=== PATIENT | female | born 1985 | race Caucasian/White ===

== ENCOUNTER 2019-02-25 13:19 | Inpatient (IN) | payer MEDICAID ==
[~2019-02-25] VITALS: Ht 165.1 cm; Wt 94.6 kg
[2019-02-25 13:57] VITALS: Ht 165.1 cm; Wt 94.6 kg
[2019-02-25 13:58] VITALS: BP 145/96; PULSE 101; RESP 20
[2019-02-25] MEDS ORDERED: METHYLERGONOVINE 0.2 MG INJ IM PRN (14:00)
[2019-02-25] MEDS ORDERED: OXYTOCIN 30 UNITS/LR 500 ML IV SCH ×3 (14:00→15:30)
[2019-02-25] MEDS ORDERED: CARBOPROST 250 MCG INJ IM PRN (14:00)
[2019-02-25] MEDS ORDERED: OXYTOCIN 30 UNITS/LR 500 ML IV PRN (14:00)
[2019-02-25] MEDS ORDERED: BUTORPHANOL 2 MG INJ IV PRN ×2 (14:00)
[2019-02-25] MEDS ORDERED: MISOPROSTOL 200 MCG TAB PR PRN (14:00)
[2019-02-25] MEDS ORDERED: LIDOCAINE 1% (MPF) 30 ML INJ INJ PRN (14:00)
[2019-02-25] MEDS ORDERED: MINERAL OIL LIGHT 10 ML VIAL TOP ONE (15:30)
[2019-02-25] MEDS: ACETAMINOPHEN 325 MG TAB PO PRN ×2 (15:45→20:54)
[2019-02-25] MEDS: LACTATED RINGER'S 1,000 ML IV SCH (15:46)
[2019-02-25] MEDS ORDERED: LACTATED RINGER'S 1,000 ML IV PRN (22:15)
--- NOTE | 2019-02-25 23:00 | PREAC ---
Date/Time of Note Date/Time of Note DATE: 02/25/19 TIME: 22:59 Anesthesia Eval and Record Evaluation Time Pre-Procedure Interview DATE: 02/25/19 TIME: 22:59 Age 33 Sex female NPO: Other (n/a) Preoperative diagnosis intrauterine Planned procedure labor epidural Past Medical History Past Medical History: Includes Cardio: HTN Surgery & Anesthesia Issues No known issue Meds Anticoagulation: No Beta Vielka within 24 hr: No Reason Beta Vielka not given: Pt. not on B-Vielka Current Medications Lactated Ringer's 1,000 ml @ 125 mls/hr Q8H IV Last administered on 02/25/19at 15:46; Admin Dose 125 MLS/HR; Start 02/25/19 at 13:42 Butorphanol Tartrate (Stadol) 1 mg Q2H PRN IV .PAIN SCALE 1-5; Start 02/25/19 at 14:00 Butorphanol Tartrate (Stadol) 2 mg Q2H PRN IV .PAIN SCALE 6-10; Start 02/25/19 at 14:00 Lidocaine (Xylocaine 1% (Mpf)) 30 ml ONCE PRN INJ .EPISIOTOMY; Start 02/25/19 at 14:00 Oxytocin/Lactated Ringer's 500 ml @ 500 mls/hr ONCE POST IV ; Start 02/25/19 at 14:00 Oxytocin/Lactated Ringer's 500 ml @ 125 mls/hr POST IV ; Start 02/25/19 at 14:00 Oxytocin/Lactated Ringer's 500 ml @ 0 mls/hr ONCE PRN IV .VAGINAL BLEEDING; Start 02/25/19 at 14:00 Methylergonovine Maleate (Methergine) 0.2 mg ONCE PRN IM .VAGINAL BLEEDING; Start 02/25/19 at 14:00 Carboprost Tromethamine (Hemabate) 250 mcg ONCE PRN IM .VAGINAL BLEEDING; Start 02/25/19 at 14:00 Misoprostol (Cytotec) 1,000 mcg ONCE PRN [place] .VAGINAL BLEEDING; Start 02/25/19 at 14:00 Acetaminophen (Tylenol Tab) 650 mg Q4H PRN PO MILD PAIN(1-3)OR ELEVATED TEMP Last administered on 02/25/19at 20:54; Admin Dose 650 MG; Start 02/25/19 at 15:30 Oxytocin/Lactated Ringer's 500 ml @ 0 mls/hr FOR INDUCTION IV Last administered on 02/25/19at 15:49; Admin Dose 0 MLS/HR; Start 02/25/19 at 15:30 Lactated Ringer's 1,000 ml @ 2,000 mls/hr Q30M PRN IV .ANESTHESIA; Start 02/25/19 at 22:15 Meds reviewed: Yes Allergies Coded Allergies: codeine (Verified Allergy, Mild, 02/25/19) FEELS LIKE PINS AND NEEDLES ALL OVER MY BODY Allergies Reviewed: Yes Labs/Studies Labs Reviewed: Reviewed by anesthesiologist Result Diagram: 02/25/19 1500 02/25/19 1500 Laboratory Tests 02/25/19 15:00 Blood Bank Test 02/25/19 15:00 Antibody Screen NEGATIVE Blood Type B NEGATIVE Rh Immune Globulin Candidate test: N/A Pre-procedure Exam Last vitals Vital Signs Date Temp Pulse Resp B/P (MAP) Pulse Ox O2 O2 Flow FiO2 Time Delivery Rate 02/25/19 98.2 19:02 02/25/19 101 20 145/96 Room Air 13:58 (112) Airway: Adequate mouth opening, Adequate thyromental dist Mallampati: Mallampati II Teeth: Normal Lung: Normal Heart: Normal ASA Physical Status ASA physical status: 2 Emergency: None Planned Anesthetic Neuraxial: Epidural Planned Pain Management Epidural Pre-operative Attestations Prior to commencing anesthesia and surgery, the patient was re-evaluated, there was verification of: *The patient's identity *The results of appropriate recent lab work and preoperative vital signs *The above evaluation not changing prior to induction *Anesthetic plan, risk benefits, alternative and complications discussed with patient/family; questions answered; patient/family understands, accepts and wishes to proceed. THEO FU MD Feb 25, 2019 23:00
[2019-02-25] MEDS ORDERED: FENTAnyl 2MCG/ML-ROPIV 0.2% 100 ML ONE (23:09)
[2019-02-25] MEDS ORDERED: NALOXONE (0.4 MG/ML) INJ IV PRN (23:30)
[2019-02-25] MEDS ORDERED: ONDANSETRON 4 MG INJ IV PRN (23:30)
[2019-02-25] MEDS ORDERED: DIPHENHYDRAMINE 50 MG INJ IV PRN (23:30)
[2019-02-26] MEDS: LACTATED RINGER'S 1,000 ML IV SCH ×4 (00:13→22:19)
--- NOTE | 2019-02-26 01:12 | PAC ---
Date/Time of Note Date/Time of Note DATE: 02/26/19 TIME: 01:11 Post-Anesthesia Notes Post-Anesthesia Note Last documented vital signs Vital Signs Date Temp Pulse Resp B/P (MAP) Pulse Ox O2 O2 Flow FiO2 Time Delivery Rate 02/25/19 98.2 19:02 02/25/19 101 20 145/96 Room Air 13:58 (112) Activity: WNL Respiratory function: WNL Cardiovascular function: WNL Mental status: Baseline Pain reasonably controlled: Yes Hydration appropriate: Yes Nausea/Vomiting absent: Yes Comments BP: 138/81 HR: 90 RR: 16 T: 98.2 SaO2: 100% THEO FU MD Feb 26, 2019 01:12
[2019-02-26] MEDS: ACETAMINOPHEN 325 MG TAB PO PRN (02:24)
[2019-02-26] MEDS: FENTAnyl 2MCG/ML-ROPIV 0.2% 100 ML BAG EPI SCH ×4 (03:51→18:13)
[2019-02-26] MEDS ORDERED: OXYTOCIN 30 UNITS/LR 500 ML BAG IV ONE (11:20)
--- NOTE | 2019-02-26 23:19 | HP ---
Date/Time of Note Date/Time of Note DATE: 02/26/19 TIME: 23:18 OB - History Hx of Present Free Text/Dictation @39+6 wks GA fro Augmentation of labor : 1 Para: 0 Care: Good Care Ultrasounds: Normal mid trimester US Obstetrical Complications: None Past Family/Social History * Past Medical, Surgical, Family and Obstetric Histories reviewed from chart. OB Admission Exam Vital Signs Vital Signs Vital Signs Date Temp Pulse Resp B/P (MAP) Pulse Ox O2 O2 Flow FiO2 Time Delivery Rate 02/25/19 98.2 19:02 02/25/19 101 20 145/96 Room Air 13:58 (112) Physical Exam Cervical Dilatation: 1cm Effacement: 75% Station: -1 Membranes: Intact Heart Rate: 140's Accelerations: Accelerations Present Decelerations: No Decelerations Varibility: Moderate Contractions on Admission: 6-10 Minutes Apart Last 72 hours Lab Results CBC & BMP 02/25/19 15:00 Liver Function Test 02/25/19 15:00 Alanine Aminotransferase (ALT/SGPT) 16 Albumin 3.8 Alkaline Phosphatase 177 H Aspartate Amino Transf (AST/SGOT) 26 Direct Bilirubin 0.00 Total Protein 7.2 OB Assessment/Plan Reason for admission: observation Other Assessment: PMH Denies PSH Denies Induction Method: per Pitocin Protocol MINISTERIO COLLIER M.D. Feb 26, 2019 23:19
[2019-02-26] MEDS: AZITHROMYCIN 500MG/NS (PMX) 250 ML IV SCH (23:20)
[2019-02-26] MEDS ORDERED: LIDOCAINE 1.5%/EPI MPF (SDV) 30 ML VIAL ONE (23:20)
[2019-02-26] MEDS ORDERED: FENTAnyl 50 MCG/ML VIAL ONE (23:21)
[2019-02-26] MEDS ORDERED: NA BICARB 50 MEQ/50 ML VIAL ONE (23:21)
[2019-02-26] MEDS ORDERED: NALOXONE (0.4 MG/ML) INJ IV PRN (23:30)
[2019-02-26] MEDS ORDERED: ZOLPIDEM 5 MG TAB PO PRN (23:30)
[2019-02-26] MEDS ORDERED: CEFAZOLIN 2 GM/50 ML (PMX) 50 ML IVPB SCH (23:30)
[2019-02-26] MEDS ORDERED: HYDROmorphONE 0.5 MG/0.5 ML SYG IV PRN ×2 (23:30)
[2019-02-26] MEDS ORDERED: ONDANSETRON 4 MG INJ IV PRN (23:30)
[2019-02-26] MEDS ORDERED: DIPHENHYDRAMINE 50 MG INJ IV PRN (23:30)
[2019-02-26] MEDS ORDERED: ONDANSETRON 4 MG INJ ONE (23:41)
[2019-02-26] MEDS ORDERED: DEXAMETHASONE 4 MG/ML 1 ML INJ ONE (23:41)
[2019-02-26] MEDS ORDERED: morphine SULFATE/PF (10 MG/10 ML) INJ ONE (23:43)
[2019-02-27] MEDS: KETOROLAC 30 MG INJ IV PRN ×4 (00:43→22:21)
[2019-02-27] MEDS: AZITHROMYCIN 500MG/NS (PMX) 250 ML IV SCH (01:46)
[2019-02-27] MEDS ORDERED: OXYTOCIN 30 UNITS/LR 500 ML IV SCH (02:45)
--- NOTE | 2019-02-27 02:46 | OPR ---
DATE OF OPERATION: 02/26/2019 PREOPERATIVE DIAGNOSIS: Arrest of labor, failure to descend, more than 4 hours, the station of the h ead was -2 despite being complete. POSTOPERATIVE DIAGNOSIS: Arrest of labor, failure to descend, more than 4 hours, the station of the head was -2 despite being complete. PROCEDURE PERFORMED: Primary section. ATTENDING SURGEON: Dr. Collier. SECOND HAND PAPER MACHINE: Dr. Fuentes. TYPE OF ANESTHESIA: Epidural. ANESTHESIOLOGIST: Dr. Oliver. ESTIMATED BLOOD LOSS: 600 mL. COMPLICATIONS: None. TECHNIQUE: The patient was taken to the operating room where epidural anesthesia was found to be yady quate. The patient was placed in supine position. After prep and drape, a Pfannenstiel incision was made 2 cm above the symphysis pubis. It was extended to the underlying fascia. Fascia was nicked i n the midline. Fascial incision was extended bilaterally. Fascia was from underlying musc les. Muscles in the midline. Peritoneum was entered sharply. Peritoneal incision was ext ended. Bladder blade was placed inside the abdominal cavity. Lower uterine segment incision was mad e. Baby was delivered vertex, handed to the NICU team. Cord blood sent. Placenta was removed manua lly. Uterus was exteriorized. Intrauterine cavity was cleaned using 2 sponges. Lower uterine incis ion was closed in 2 layers using 0 looped PDS sutures. Gutters were cleaned. Uterus was inserted in side the abdominal cavity. Peritoneum and muscle were reapproximated using 2-0 chromic sutures. Fas rodríguez was closed in a running nonlocking fashion using 0 looped PDS sutures. Subcutaneous tissue was c losed using plain sutures. Skin was closed using 3-0 Monocryl sutures. Dermabond was placed on top of the incision. The patient tolerated the procedure well and was transferred to recovery room in st able condition. There was no complication regarding this surgery. Dictated By: MINISTERIO COLLIER MD RG/NTS Conf#: [id number] DID#: [id number] CC: KRIS FUENTES MD;*EndCC*
[2019-02-27 03:00] VITALS: BP 139/82; PULSE 89; RESP 22
[2019-02-27] MEDS ORDERED: MISOPROSTOL 200 MCG TAB PR PRN (03:00)
[2019-02-27] MEDS ORDERED: METHYLERGONOVINE 0.2 MG INJ IM PRN (03:00)
[2019-02-27] MEDS ORDERED: LANOLIN HPA 1 PKT TOP PRN (03:00)
[2019-02-27] MEDS ORDERED: OXYTOCIN 30 UNITS/LR 500 ML IV PRN (03:00)
[2019-02-27] MEDS ORDERED: CARBOPROST 250 MCG INJ IM PRN (03:00)
[2019-02-27] MEDS ORDERED: NACL 0.9% 3 ML SYG IV SCH (03:00)
[2019-02-27] MEDS: CEFAZOLIN 1 GM/50 ML (PMX) 50 ML IVPB SCH ×3 (03:33→18:21)
[2019-02-27 04:05] VITALS: BP 141/80; PULSE 82; RESP 21
[2019-02-27 08:00] VITALS: BP 125/76; PULSE 86; RESP 18
[2019-02-27 16:03] VITALS: BP 130/82; PULSE 98; RESP 18
[2019-02-27 20:00] VITALS: BP 134/76; PULSE 92; RESP 19
[2019-02-27] MEDS: SENNA/DOCUSATE NA (8.6MG/50MG) TAB PO SCH (22:21)
[2019-02-28] MEDS: OXYCODONE/ACETAMINOPHEN (5/325) TAB PO PRN ×5 (03:48→21:47)
[2019-02-28 04:00] VITALS: BP 121/79; PULSE 82; RESP 19
[2019-02-28] MEDS: IBUPROFEN 600 MG TAB PO SCH ×4 (06:27→17:48)
--- NOTE | 2019-02-28 07:16 | QN ---
Documentation Comment Late Entry Note 02/27/2019 POD#1 is stable afebrile tolerates diet No VB +Flatus +voids VS stable Gen NAD Abd soft NT ND Incision intact Genitalia No blood at Perineum --->Discharge Home tomorrow --->precautions discussed MINISTERIO COLLIER M.D. Feb 28, 2019 07:16
--- NOTE | 2019-02-28 07:17 | DS ---
Date/Time of Note Date/Time of Note DATE: 02/28/19 TIME: 07:16 Discharge Summary Admission/Discharge Info Admit Date/Time Feb 25, 2019 at 13:23 Discharge Date/Time 03/01/2019 Discharge Diagnosis Patient Condition: Good Hospital Course uneventful Primary Care Provider Not On Staff Doctor MINISTERIO COLLIER M.D. Feb 28, 2019 07:17
[2019-02-28 08:00] VITALS: BP 116/66; PULSE 78; RESP 18
[2019-02-28] MEDS: SENNA/DOCUSATE NA (8.6MG/50MG) TAB PO SCH ×2 (08:49→21:46)
--- NOTE | 2019-02-28 13:31 | PAC ---
Date/Time of Note Date/Time of Note DATE: 02/28/19 TIME: 13:31 Post-Anesthesia Notes Post-Anesthesia Note Last documented vital signs Vital Signs Date Temp Pulse Resp B/P (MAP) Pulse Ox O2 O2 Flow FiO2 Time Delivery Rate 02/28/19 98.0 78 18 116/66 Room Air 08:00 (83) 02/27/19 96 20:00 Activity: WNL Respiratory function: WNL Cardiovascular function: WNL Mental status: Baseline Pain reasonably controlled: Yes Hydration appropriate: Yes Nausea/Vomiting absent: Yes JUDY KONG Feb 28, 2019 13:31
[2019-02-28] MEDS ORDERED: DIBUCAINE 1% 30 GM OINT TOP PRN (15:30)
[2019-02-28] MEDS ORDERED: BISACODYL 10 MG SUPP PR PRN (15:30)
[2019-02-28 15:35] VITALS: BP 127/76; PULSE 97; RESP 18
[2019-02-28 20:40] VITALS: BP 133/78; PULSE 80; RESP 19
[2019-02-28] MEDS ORDERED: OXYCODONE/ACETAMINOPHEN (5/325) TAB PO PRN (23:58)
[2019-03-01] MEDS: IBUPROFEN 600 MG TAB PO SCH ×3 (00:12→11:37)
[2019-03-01] MEDS: OXYCODONE/ACETAMINOPHEN (5/325) TAB PO PRN ×3 (03:29→13:30)
[2019-03-01 04:14] VITALS: BP 144/83; PULSE 76; RESP 19
[2019-03-01 08:00] VITALS: BP 132/79; PULSE 71; RESP 16
[2019-03-01] MEDS: SENNA/DOCUSATE NA (8.6MG/50MG) TAB PO SCH (08:57)
[2019-03-01] MEDS ORDERED: DIPHTH/TET/ACEL PERTUSS (ADULT) 0.5 ML VIAL IM* ONE (12:00)
--- NOTE | 2019-03-02 16:40 | DELSUM ---
Delivery Summary A-C Datetime Report Generated by CPN: 03/02/2019 16:40 DELIVERY PERSONNEL Criminal Justice Instructor: Quan, Mary Beth MATERNAL INFORMATION Delivery Anesthesia: Epidural Medications in Delivery: SEE ANESTHESIA FLOWSHEET Delivery QBL (ml): 700 Placenta Cultured: No Maternal Complications: Other Other Maternal Complications: 2.5yr sober off heroine [facility] UDS negative 02/25/19, hx of depression (off meds for a year) endometriosis, tooth ache presently, fob has senior care in his past RN Comments: B negative and no rhogam given prenatally, allergic to codeine, high b/p last 3 wks of LABOR SUMMARY EDC: 02/27/2019 00:00 No. Babies in Womb: 1 Attempted: No Labor Anesthesia: Epidural LABOR INFORMATION Reason for Induction: Gest. HTN/PreEclam/Eclamp Onset of Labor: 02/26/2019 14:45 Complete Dilatation: 02/26/2019 19:50 Group B Beta Strep: Negative Antibiotics # of Doses: 2 Antibiotics Time of Last Dose: 02/26/2019 23:30 Steroids Given: None Reason Steroids Not Administered: Not Applicable MEMBRANES Membranes Rupture Method: Artificial Rupture of Membranes: 02/26/2019 11:34 Length of Rupture (hr): 12.28 Amniotic Fluid Color: Clear Amniotic Fluid Amount: Small STAGES OF LABOR Stage 1 hr: 5 Stage 1 min: 5 Stage 2 hr: 4 Stage 2 min: 1 Stage 3 hr: 0 Stage 3 min: 0 Total Time in Labor hr: 9 Total Time in Labor min: 6 VAGINAL DELIVERY Episiotomy: None Laceration Extension: N/A Laceration Type: Perineal CSECTION DELIVERY Primary Indication: Failure of Descent CSection Urgency: Elective CSection Incidence: Primary CSection Incision: Lower Uterine Transverse BABY A INFORMATION Delivery Date/Time: 02/26/2019 23:51 Method of Delivery: Born in Route : No : N/A Forceps: N/A Vacuum Extraction: N/A Shoulder Dystocia : No SHOULDER DYSTOCIA BABY A Infant Delivery Date/Time: 02/26/2019 23:51 PRESENTATION/POSITION BABY A Presentation: Cephalic Cephalic Presentation: Vertex Breech Presentation: N/A PLACENTA INFORMATION BABY A Placenta Delivery Time : 02/26/2019 23:51 Placenta Method of Delivery: Manual Removal Placenta Status: Delivered SCORES BABY A Heart Rate 1 min: >100 bpm Resp Effort 1 min: Good Cry Reflex Irritability 1 min: Cough/Sneeze/Pulls Away Muscle Tone 1 min: Active Motion Color 1 min: Blue/Pale Resuscitation Effort 1 min: Tactile Stimulation SCORE 1 MIN: 8 Heart Rate 5 min: >100 bpm Resp Effort 5 min: Good Cry Reflex Irritability 5 min: Cough/Sneeze/Pulls Away Muscle Tone 5 min: Active Motion Color 5 min: Body [place], Extremit Blue Resuscitation Effort 5 min: Tactile Stimulation SCORE 5 MIN: 9 INFANT INFORMATION BABY A Gestational Age at Delivery: 39.6 Gestational Status: Full Term- 39- 40.6 Weeks Outcome : Liveborn, with signs of life Infant Condition : Stable Sex: Female IDENTIFICATION/MEDS BABY A ID Band Number: [id number] ID Band Location: Right Leg; Left Arm Sensor Applied: Yes Sensor Number: [id number] Sensor Location : Cord Clamp Vitamin K Given : Not Given Erythromycin Given: Not Given WEIGHT/LENGTH BABY A Birthweight (gm): 2755 Weight (lb): 6 Infant Weight (oz): 1 Infant Length (in): 19.00 Infant Length (cm): 48.26 CORD INFORMATION BABY A No. Cord Vessels: 3 Nuchal Cord : N/A Cord Blood Taken: Yes Suction: Mouth; Nose ASSESSMENT BABY A Complications: Multiple Variable Decels; Meconium Complications- Other: HIGH B/P, B NEG NO RHOGAM Physical Findings at Delivery: Within Normal Limits Infant Respirations: Appears Normal Blasting Entryman/ALS Called : No Care By: EVERT[place] Transferred To: Remains with Mother
== END 2019-03-01 16:39 | disposition home or self-care (01) | DRG 788 ==
LOC: OBT 13:19 → L-D 13:19 → OBT 13:22 → L-D 13:23 → PP1 02-27 02:57
PROVIDERS: ADMIT Obstetrics & Gynecology; ATTEND Obstetrics & Gynecology
PROC: 10D00Z1 Extraction of Products of Conception, Low, Open Approach (ICD-10-PCS; principal; 2019-02-26 22:30)
DX: O62.1 Secondary uterine inertia (principal); Z3A.39 39 weeks gestation of pregnancy; Z37.0 Single live birth
CPT/HCPCS: 62322; 76815; 76818; 80053; 80307; 81001; 84560; 85025; 85384; 85610; 85730; 86592; 86850; 86900; 86901; 87340; 90715; 99464; J0456; J0690; J1100; J1170; J1885; J2210; J2274; J2405; J2590; J3010; J7120